=== PATIENT | female | born 1940 | race Caucasian/White ===

== ENCOUNTER → 2018-09-12 | Outpatient (CLI) | payer OTHER ==
[~2018-09-12] MED LIST: ALDACTONE25 MG PO; ALLOPURINOL 30300 M2 PO; ALTACE5 M1 PO; AMLODIPINE BESY10 MG PO; CARVEDILOL25 MG PO; CENTRUM SILVER1 EAC4 PO; CINNAMON500 MG PO; COZAAR 50 MG TA50 M1 PO; COZAAR 50 MG TA50 M2 PO; DIGOXIN250 MCG PO; EFFEXOR PO; FISH OIL 1,0001 EAC8 PO; FISH OIL 1,001000 M2 PO; GLIPIZIDE 5 MG T5 MG PO; GLUCOTROL5 MG PO; GLUMETZA500 PO; HYDROCODONE-AP1 EAC6 PO; IRON325 PO; KEFLEX500 MG PO; LANOXIN 0.250.25 M1 PO; LASIX 40 MG TAB40 M2 PO; LASIX 40 MG TAB40 MG PO; LEVEMIR SUBQ; LONG ACTING INSULIN SQ; LOPRESSOR PO; LYRICA 75 MG CA75 MG PO; METFORMIN HCL500 MG PO; MIRALAX17 GM PO; MIRALAX255 GM PO; NAPROSYN375 MG PO; NEURONTIN 300300 M1 PO; NOLVADEX20 MG PO; NORCO 10-325 T1 EACH PO; NORCO 5-325 TA1 EACH PO; NORVASC5 MG PO; OMEPRAZOLE40 MG PO; OXYCODONE HCL 55 MG PO; PRILOSEC40 MG PO; RESTORIL30 MG PO; STOOL SOFTENER1 EAC2 PO; TART CHERRY CA1 EACH PO; VITAMIN D31000 UNI2 PO; VITAMIN E400 UNIT PO; VITAMINC500 PO; XARELTO10 MG PO
== END ==
LOC: M.RAD 10:01
DX: Z12.31 Encounter for screening mammogram for malignant neoplasm of breast (principal)

== ENCOUNTER → 2019-01-09 | Outpatient (CLI) | payer OTHER | LOC: M.WC 07:42 | DX: E11.621 Type 2 diabetes mellitus with foot ulcer (principal); L97.522 Non-pressure chronic ulcer of other part of left foot with fat layer exposed; L84 Corns and callosities; E11.40 Type 2 diabetes mellitus with diabetic neuropathy, unspecified; E11.22 Type 2 diabetes mellitus with diabetic chronic kidney disease; I12.9 Hypertensive chronic kidney disease with stage 1 through stage 4 chronic kidney disease, or unspecified chronic kidney disease; N18.3 Chronic kidney disease, stage 3 (moderate); G47.30 Sleep apnea, unspecified; I42.9 Cardiomyopathy, unspecified; Z90.710 Acquired absence of both cervix and uterus; Z90.49 Acquired absence of other specified parts of digestive tract; Z79.4 Long term (current) use of insulin; Z95.0 Presence of cardiac pacemaker; Z79.82 Long term (current) use of aspirin ==

== ENCOUNTER → 2019-01-16 | Outpatient (CLI) | payer OTHER | LOC: M.WC 00:53 | DX: E11.621 Type 2 diabetes mellitus with foot ulcer (principal); L97.521 Non-pressure chronic ulcer of other part of left foot limited to breakdown of skin; L84 Corns and callosities; E11.40 Type 2 diabetes mellitus with diabetic neuropathy, unspecified; E11.22 Type 2 diabetes mellitus with diabetic chronic kidney disease; I12.9 Hypertensive chronic kidney disease with stage 1 through stage 4 chronic kidney disease, or unspecified chronic kidney disease; N18.3 Chronic kidney disease, stage 3 (moderate); G47.30 Sleep apnea, unspecified; I42.9 Cardiomyopathy, unspecified; Z95.0 Presence of cardiac pacemaker ==

== ENCOUNTER → 2019-01-23 | Outpatient (CLI) | payer OTHER | LOC: M.WC 04:35 | DX: E11.621 Type 2 diabetes mellitus with foot ulcer (principal); L97.521 Non-pressure chronic ulcer of other part of left foot limited to breakdown of skin; L84 Corns and callosities; E11.40 Type 2 diabetes mellitus with diabetic neuropathy, unspecified; E11.22 Type 2 diabetes mellitus with diabetic chronic kidney disease; I12.9 Hypertensive chronic kidney disease with stage 1 through stage 4 chronic kidney disease, or unspecified chronic kidney disease; N18.3 Chronic kidney disease, stage 3 (moderate); G47.30 Sleep apnea, unspecified; I42.9 Cardiomyopathy, unspecified; Z95.0 Presence of cardiac pacemaker ==

== ENCOUNTER → 2019-02-06 | Outpatient (CLI) | payer OTHER | LOC: M.WC 00:59 | DX: E11.621 Type 2 diabetes mellitus with foot ulcer (principal); L97.521 Non-pressure chronic ulcer of other part of left foot limited to breakdown of skin; L84 Corns and callosities; E11.40 Type 2 diabetes mellitus with diabetic neuropathy, unspecified; E11.22 Type 2 diabetes mellitus with diabetic chronic kidney disease; I12.9 Hypertensive chronic kidney disease with stage 1 through stage 4 chronic kidney disease, or unspecified chronic kidney disease; N18.3 Chronic kidney disease, stage 3 (moderate); G47.30 Sleep apnea, unspecified; I42.9 Cardiomyopathy, unspecified; Z95.0 Presence of cardiac pacemaker ==

== ENCOUNTER → 2019-02-13 | Outpatient (CLI) | payer OTHER | LOC: M.WC 01:08 | DX: E11.621 Type 2 diabetes mellitus with foot ulcer (principal); L97.522 Non-pressure chronic ulcer of other part of left foot with fat layer exposed; L84 Corns and callosities; E11.40 Type 2 diabetes mellitus with diabetic neuropathy, unspecified; E11.22 Type 2 diabetes mellitus with diabetic chronic kidney disease; I12.9 Hypertensive chronic kidney disease with stage 1 through stage 4 chronic kidney disease, or unspecified chronic kidney disease; N18.3 Chronic kidney disease, stage 3 (moderate); G47.30 Sleep apnea, unspecified; I42.9 Cardiomyopathy, unspecified; Z95.0 Presence of cardiac pacemaker ==

== ENCOUNTER → 2019-02-20 | Outpatient (CLI) | payer OTHER | LOC: M.WC 02:52 | DX: E11.621 Type 2 diabetes mellitus with foot ulcer (principal); L97.522 Non-pressure chronic ulcer of other part of left foot with fat layer exposed; L89.893 Pressure ulcer of other site, stage 3; L84 Corns and callosities; E11.40 Type 2 diabetes mellitus with diabetic neuropathy, unspecified; E11.22 Type 2 diabetes mellitus with diabetic chronic kidney disease; I12.9 Hypertensive chronic kidney disease with stage 1 through stage 4 chronic kidney disease, or unspecified chronic kidney disease; N18.3 Chronic kidney disease, stage 3 (moderate); I42.9 Cardiomyopathy, unspecified; G47.30 Sleep apnea, unspecified; Z95.0 Presence of cardiac pacemaker ==

== ENCOUNTER → 2019-03-06 | Outpatient (CLI) | payer OTHER | LOC: M.WC 08:31 | DX: E11.621 Type 2 diabetes mellitus with foot ulcer (principal); L97.522 Non-pressure chronic ulcer of other part of left foot with fat layer exposed; L84 Corns and callosities; E11.40 Type 2 diabetes mellitus with diabetic neuropathy, unspecified; I12.9 Hypertensive chronic kidney disease with stage 1 through stage 4 chronic kidney disease, or unspecified chronic kidney disease; N18.3 Chronic kidney disease, stage 3 (moderate); G47.30 Sleep apnea, unspecified; I42.9 Cardiomyopathy, unspecified; Z95.0 Presence of cardiac pacemaker ==

== ENCOUNTER → 2019-03-13 | Outpatient (CLI) | payer OTHER | LOC: M.WC 02:03 | DX: E11.621 Type 2 diabetes mellitus with foot ulcer (principal); L89.893 Pressure ulcer of other site, stage 3; L97.521 Non-pressure chronic ulcer of other part of left foot limited to breakdown of skin; L84 Corns and callosities; E11.40 Type 2 diabetes mellitus with diabetic neuropathy, unspecified; E11.22 Type 2 diabetes mellitus with diabetic chronic kidney disease; I12.9 Hypertensive chronic kidney disease with stage 1 through stage 4 chronic kidney disease, or unspecified chronic kidney disease; N18.3 Chronic kidney disease, stage 3 (moderate); G47.30 Sleep apnea, unspecified; I42.9 Cardiomyopathy, unspecified; Z95.0 Presence of cardiac pacemaker ==

== ENCOUNTER → 2019-03-27 | Outpatient (CLI) | payer OTHER | LOC: M.WC 03-20 00:54 | DX: E11.621 Type 2 diabetes mellitus with foot ulcer (principal); L89.893 Pressure ulcer of other site, stage 3; L97.521 Non-pressure chronic ulcer of other part of left foot limited to breakdown of skin; L84 Corns and callosities; E11.40 Type 2 diabetes mellitus with diabetic neuropathy, unspecified; I42.9 Cardiomyopathy, unspecified; E11.22 Type 2 diabetes mellitus with diabetic chronic kidney disease; I12.9 Hypertensive chronic kidney disease with stage 1 through stage 4 chronic kidney disease, or unspecified chronic kidney disease; N18.3 Chronic kidney disease, stage 3 (moderate); G47.30 Sleep apnea, unspecified; Z95.0 Presence of cardiac pacemaker ==

== ENCOUNTER → 2019-04-10 | Outpatient (CLI) | payer OTHER | LOC: M.WC 01:10 | DX: E11.621 Type 2 diabetes mellitus with foot ulcer (principal); L97.521 Non-pressure chronic ulcer of other part of left foot limited to breakdown of skin; L84 Corns and callosities; E11.40 Type 2 diabetes mellitus with diabetic neuropathy, unspecified; G47.30 Sleep apnea, unspecified; I42.9 Cardiomyopathy, unspecified; I12.9 Hypertensive chronic kidney disease with stage 1 through stage 4 chronic kidney disease, or unspecified chronic kidney disease; N18.3 Chronic kidney disease, stage 3 (moderate); Z95.0 Presence of cardiac pacemaker ==

== ENCOUNTER → 2019-04-17 | Outpatient (CLI) | payer OTHER | LOC: M.WC 01:02 | DX: E11.621 Type 2 diabetes mellitus with foot ulcer (principal); L97.521 Non-pressure chronic ulcer of other part of left foot limited to breakdown of skin; L89.893 Pressure ulcer of other site, stage 3; L84 Corns and callosities; E11.40 Type 2 diabetes mellitus with diabetic neuropathy, unspecified; E11.22 Type 2 diabetes mellitus with diabetic chronic kidney disease; I12.9 Hypertensive chronic kidney disease with stage 1 through stage 4 chronic kidney disease, or unspecified chronic kidney disease; N18.3 Chronic kidney disease, stage 3 (moderate); G47.30 Sleep apnea, unspecified; I42.9 Cardiomyopathy, unspecified; Z95.0 Presence of cardiac pacemaker ==

== ENCOUNTER → 2019-06-05 | Outpatient (CLI) | payer OTHER | LOC: M.WC 08:00 | DX: E11.621 Type 2 diabetes mellitus with foot ulcer (principal); L97.522 Non-pressure chronic ulcer of other part of left foot with fat layer exposed; L84 Corns and callosities; E11.40 Type 2 diabetes mellitus with diabetic neuropathy, unspecified; E11.22 Type 2 diabetes mellitus with diabetic chronic kidney disease; I12.9 Hypertensive chronic kidney disease with stage 1 through stage 4 chronic kidney disease, or unspecified chronic kidney disease; N18.3 Chronic kidney disease, stage 3 (moderate); G47.30 Sleep apnea, unspecified; I42.9 Cardiomyopathy, unspecified; Z95.0 Presence of cardiac pacemaker; Z79.4 Long term (current) use of insulin; Z79.82 Long term (current) use of aspirin ==

== ENCOUNTER → 2019-06-19 | Outpatient (CLI) | payer OTHER | LOC: M.WC 04:54 | DX: E11.621 Type 2 diabetes mellitus with foot ulcer (principal); L97.522 Non-pressure chronic ulcer of other part of left foot with fat layer exposed; L84 Corns and callosities; E11.40 Type 2 diabetes mellitus with diabetic neuropathy, unspecified; E11.22 Type 2 diabetes mellitus with diabetic chronic kidney disease; I12.9 Hypertensive chronic kidney disease with stage 1 through stage 4 chronic kidney disease, or unspecified chronic kidney disease; N18.3 Chronic kidney disease, stage 3 (moderate); G47.30 Sleep apnea, unspecified; I42.9 Cardiomyopathy, unspecified; Z95.0 Presence of cardiac pacemaker ==

== ENCOUNTER → 2019-06-26 | Outpatient (CLI) | payer OTHER | LOC: M.RAD 14:04 | DX: R22.32 Localized swelling, mass and lump, left upper limb (principal); M79.632 Pain in left forearm ==

== ENCOUNTER → 2019-08-07 | Outpatient (CLI) | payer OTHER | LOC: M.WC 07:55 | DX: E11.621 Type 2 diabetes mellitus with foot ulcer (principal); L97.522 Non-pressure chronic ulcer of other part of left foot with fat layer exposed; L03.032 Cellulitis of left toe; L84 Corns and callosities; E11.40 Type 2 diabetes mellitus with diabetic neuropathy, unspecified; E11.22 Type 2 diabetes mellitus with diabetic chronic kidney disease; I12.9 Hypertensive chronic kidney disease with stage 1 through stage 4 chronic kidney disease, or unspecified chronic kidney disease; N18.3 Chronic kidney disease, stage 3 (moderate); G47.30 Sleep apnea, unspecified; I42.9 Cardiomyopathy, unspecified; Z95.0 Presence of cardiac pacemaker; Z98.41 Cataract extraction status, right eye; Z98.42 Cataract extraction status, left eye; Z90.49 Acquired absence of other specified parts of digestive tract; Z79.4 Long term (current) use of insulin; Z79.82 Long term (current) use of aspirin ==

== ENCOUNTER → 2019-08-21 | Outpatient (CLI) | payer OTHER | LOC: M.WC 08-14 05:07 | DX: E11.621 Type 2 diabetes mellitus with foot ulcer (principal); L97.522 Non-pressure chronic ulcer of other part of left foot with fat layer exposed; E11.22 Type 2 diabetes mellitus with diabetic chronic kidney disease; I12.9 Hypertensive chronic kidney disease with stage 1 through stage 4 chronic kidney disease, or unspecified chronic kidney disease; N18.3 Chronic kidney disease, stage 3 (moderate); L84 Corns and callosities; E11.40 Type 2 diabetes mellitus with diabetic neuropathy, unspecified; I42.9 Cardiomyopathy, unspecified; G47.30 Sleep apnea, unspecified; Z95.0 Presence of cardiac pacemaker ==

== ENCOUNTER → 2019-08-28 | Outpatient (CLI) | payer OTHER | LOC: M.WC 04:48 | DX: E11.621 Type 2 diabetes mellitus with foot ulcer (principal); L97.522 Non-pressure chronic ulcer of other part of left foot with fat layer exposed; L03.032 Cellulitis of left toe; L84 Corns and callosities; E11.40 Type 2 diabetes mellitus with diabetic neuropathy, unspecified; E11.22 Type 2 diabetes mellitus with diabetic chronic kidney disease; I12.9 Hypertensive chronic kidney disease with stage 1 through stage 4 chronic kidney disease, or unspecified chronic kidney disease; N18.3 Chronic kidney disease, stage 3 (moderate); G47.30 Sleep apnea, unspecified; I42.9 Cardiomyopathy, unspecified; Z95.0 Presence of cardiac pacemaker ==

== ENCOUNTER → 2019-09-08 | Outpatient (CLI) | payer OTHER ==
--- NOTE | 2019-09-13 11:22 | CON ---
[address] [address] CONSULTATION Name: CHAYALATASHA GONZALEZ Room: [facility].Lan.#: [id number] Admission: 09/08/19 Attend Phys: Maribel Chang MD Discharge: Date of : 40 Report #: [id number] THIS REPORT FOR: //name// CC: Abhishek Chang DATE OF SERVICE: 09/08/2019 INFECTIOUS DISEASE CONSULTATION This is an infectious disease referral at the [facility]. REFERRING PHYSICIAN: Maribel Chang MD REASON FOR EVALUATION: Suspected distal third toe chronic osteomyelitis in the setting of a nonhealing wound. HISTORY OF PRESENT ILLNESS: Chart reviewed, the patient examined. This is a 78-year-old woman, with known diabetes mellitus complicated by peripheral neuropathy, also has some diffuse vasculopathy, end-stage renal disease, had a chronic ulceration over the distal plantar aspect of her third toe, which is a hammertoe deformity for a number of months. Seemingly it improved only to have relapsed. At one point, it healed but broke down about a month later. He has had a diminished feeling overall and was evaluated including imaging, which raised a question of some bony destruction at the distal aspect. Culture with growth of Staphylococcus aureus. Denies any systemic illness, no fevers or chills. ALLERGIES: None. MEDICATIONS: Include omeprazole, spironolactone, aspirin, furosemide, fish oil, doxycycline, carvedilol, gabapentin, p.r.n. Zofran, glipizide, losartan, Avista, amlodipine, digoxin, allopurinol, Toujeo SoloSTAR U-300 insulin. PAST MEDICAL HISTORY: As described above; diabetes mellitus type 2, insulin requiring and complicated by peripheral neuropathy; has cardiomyopathy with congestive heart failure; hypertension; chronic renal insufficiency; chronic vessel pacemaker defibrillator; sleep apnea. SOCIAL HISTORY: Available in chart. FAMILY HISTORY: Available in chart. REVIEW OF SYSTEMS: As above with significant pulmonary [place] [address] CONSULTATION Name: CHAYALATASHA AIMEE Room: [facility].#: [id number] Admission: 09/08/19 Attend Phys: Maribel Chang MD Discharge: Date of : 40 Report #: [id number] PHYSICAL EXAMINATION: GENERAL: Alert, cooperative, appropriate. VITAL SIGNS: Stable. HEENT: Unremarkable. LUNGS: Nonlabored. EXTREMITIES: Left third toe hammertoe deformity. There is moderate degree of inflammation noted superficially with some lymphedema. She has got superficial ulcer on plantar distal aspect that ____ or hard tissue, no purulence, no odor. ASSESSMENT AND PLAN: Chronic ulceration balloon distal plantar aspect of the third toe. At this point, I think the evidence is mixed in terms of history of osteomyelitis. We will continue current approach as prescribed. She was evaluated by property site manager with possible corrective surgery. In the interim, we will continue wound care. Monitor expectantly. We will see her back in 1 week. <ELECTRONICALLY SIGNED> By: Yuan Ty MD 09/13/19 [id number] Ty MD /nt
== END ==
LOC: M.WC 09-04 01:08
DX: E11.621 Type 2 diabetes mellitus with foot ulcer (principal); L97.522 Non-pressure chronic ulcer of other part of left foot with fat layer exposed; L03.032 Cellulitis of left toe; L84 Corns and callosities; E11.40 Type 2 diabetes mellitus with diabetic neuropathy, unspecified; E11.22 Type 2 diabetes mellitus with diabetic chronic kidney disease; I12.9 Hypertensive chronic kidney disease with stage 1 through stage 4 chronic kidney disease, or unspecified chronic kidney disease; N18.3 Chronic kidney disease, stage 3 (moderate); G47.30 Sleep apnea, unspecified; I42.9 Cardiomyopathy, unspecified; Z95.0 Presence of cardiac pacemaker

== ENCOUNTER → 2019-09-21 | Outpatient (CLI) | payer OTHER ==
[2019-09-21 07:44] LABS: POTASSIUM 4.1 mmol/L (3.5-5.1)
== END ==
LOC: M.LAB 04:55
PROVIDERS: Anesthesiology
DX: E11.9 Type 2 diabetes mellitus without complications (principal); E87.6 Hypokalemia

== ENCOUNTER → 2019-11-13 | Outpatient (CLI) | payer OTHER | LOC: M.RAD 11:26 | DX: J06.9 Acute upper respiratory infection, unspecified (principal); I70.0 Atherosclerosis of aorta ==

== ENCOUNTER → 2019-11-14 | Outpatient (CLI) | payer OTHER | LOC: M.RAD 11-06 10:50 | DX: Z12.31 Encounter for screening mammogram for malignant neoplasm of breast (principal) ==

== ENCOUNTER → 2020-10-09 | Outpatient (CLI) | payer OTHER ==
[2020-10-09 09:07] LABS: HEMATOCRIT 35.4 % (37.0-47.0); MCH 30.2 pg (26.0-34.0); MCV 88.9 fL (80.0-100.0); MPV 8.1 fl. (7.2-11.1); RBC 3.98 mil/uL (4.20-5.00); RDW-CV 17.8 % (10.5-14.5); WBC 5.7 thou/uL (4.0-11.0)
[2020-10-09 09:19] LABS: ALBUMIN 4.1 g/dL (3.4-5.0); CALCIUM 8.9 mg/dL (8.5-10.1); POTASSIUM 3.8 mmol/L (3.5-5.1); TOTAL BILIRUBIN 0.4 mg/dL (<0.1-1.0); TOTAL PROTEIN 7.8 g/dL (6.4-8.2)
== END ==
LOC: M.LAB 08:48
PROVIDERS: ATTEND Anesthesiology
DX: Z01.812 Encounter for preprocedural laboratory examination (principal); E11.22 Type 2 diabetes mellitus with diabetic chronic kidney disease; N18.9 Chronic kidney disease, unspecified; E87.6 Hypokalemia

== ENCOUNTER → 2020-10-11 | Outpatient (CLI) | payer OTHER | LOC: M.LAB 06:29 | PROVIDERS: ATTEND Podiatrist | DX: Z01.812 Encounter for preprocedural laboratory examination (principal); Z20.828 Contact with and (suspected) exposure to other viral communicable diseases ==

== ENCOUNTER → 2020-12-06 | Outpatient (CLI) | payer OTHER | LOC: M.RAD 11-15 10:15 | PROVIDERS: ATTEND Internal Medicine | DX: Z12.31 Encounter for screening mammogram for malignant neoplasm of breast (principal) ==